=== PATIENT | female | born 1970 | race Caucasian/White ===

== ENCOUNTER 2018-10-11 12:21 | Emergency (ER) | payer OTHER ==
[~2018-10-11] VITALS: Ht 167.6 cm; Wt 61.2 kg
[~2018-10-11 12:21] MED LIST: AMBIEN 10 MG TA10 MG PO; HYDROCODON-ACE1 EAC5 PO; HYDROCODON-ACE1 EACH PO; IBUPROFEN 200200 M1 PO
[2018-10-11 13:00] LABS: ABSOLUTE BASOPHILS 0.1 thou/uL (0.0-0.2); ABSOLUTE EOSINOPHILS 0.1 thou/uL (0.0-0.7); ABSOLUTE LYMPHOCYTES 2.1 thou/uL (0.8-5.3); ABSOLUTE MONOCYTES 0.5 thou/uL (0.0-1.2); ABSOLUTE NEUTROPHILS 8.1 thou/uL (1.6-8.1); BASOPHILS 1.2 %; EOSINOPHILS 0.7 %; HEMATOCRIT 38.8 % (37.0-47.0); LYMPHOCYTES 19.1 %; MCH 29.4 pg (26.0-34.0); MCHC 33.6 g/dL (28.0-37.0); MCV 87.7 fL (80.0-100.0); MONOCYTES 4.2 %; MPV 8.1 fl. (7.2-11.1); NUCLEATED RBCS 0 /100WBC; PLATELET COUNT* 360 thou/uL (150-400); POLYS 74.8 %; RBC 4.42 mil/uL (4.20-5.00); RDW-CV 14.8 % (10.5-14.5); WBC 10.8 thou/uL (4.0-11.0)
[2018-10-11 13:09] LABS: ANION GAP 8 mmol/L (7-16); BUN 11 mg/dL (7-18); CALCIUM 8.6 mg/dL (8.5-10.1); CHLORIDE 101 mmol/L (98-107); CO2 28 mmol/L (21-32); CREATININE 0.7 mg/dL (0.6-1.3); GLUCOSE 104 mg/dL (70-99); POTASSIUM 3.6 mmol/L (3.5-5.1); SODIUM 137 mmol/L (136-145)
[2018-10-11 13:18] LABS: ALBUMIN 3.9 g/dL (3.4-5.0); ALKALINE PHOSPHATASE 95 U/L (46-116); SGOT 13 U/L (15-37); SGPT 17 U/L (30-65); TOTAL BILIRUBIN 0.2 mg/dL (<0.1-1.0); TOTAL PROTEIN 7.7 g/dL (6.4-8.2); TROPONIN-I LEVEL <0.06 ng/mL (<0.06)
[2018-10-11 13:29] LABS: URINE BILIRUBIN NEGATIVE (Negative); URINE BLOOD NEGATIVE (Negative); URINE CLARITY CLEAR; URINE COLOR YELLOW; URINE GLUCOSE-RANDOM NEGATIVE (Negative); URINE KETONES NEGATIVE (Negative); URINE LEUKOCYTES-REFLEX NEGATIVE (Negative); URINE NITRITE-REFLEX NEGATIVE (Negative); URINE PROTEIN NEGATIVE (Negative); URINE UROBILINOGEN 0.2 E.U./dl (0.2-1.0)
[2018-10-11] MEDS ORDERED: TESSALON PERLE100 MG PO (13:32)
[2018-10-11] MEDS ORDERED: ACETAMINOPHEN-1 EAC1 PO (13:32)
[2018-10-11] MEDS ORDERED: PREDNISONE 20 M20 MG PO (13:32)
[2018-10-11] MEDS ORDERED: PROAIR HFA8.5 GM INH (13:32)
[2018-10-11] MEDS ORDERED: ZPAK PO (13:32)
[2018-10-11 13:50] VITALS: BP 167/100
--- NOTE | 2018-10-12 17:00 | EKG ---
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[place] : 1970 Requested By: Ranjith Salamanca Order Number: [id number] MD: Rigoberto Nazario Measurements Intervals [place] Rate: 91 P: -7 MD: 124 QRS: 62 QRSD: 91 T: 65 QT: 370 QTc: 456 Interpretive Statements Sinus rhythm Consider left ventricular hypertrophy No previous ECG available for comparison Electronically Signed On 10-12-2018 16:59:53 CDT by Rigoberto Nazario [email or web address] <ELECTRONICALLY SIGNED> By: Rigoberto Nazario MD, [facility] 10/12/18 1659 1306 [id number] Rigoberto Nazario MD, FACC /EPI
== END 2018-10-11 13:50 | disposition home or self-care (01) ==
LOC: M.ERS 12:21
PROVIDERS: Physician Assistant
DX: J20.9 Acute bronchitis, unspecified (principal); R42 Dizziness and giddiness; F17.210 Nicotine dependence, cigarettes, uncomplicated; I10 Essential (primary) hypertension; Z79.899 Other long term (current) drug therapy; Z88.8 Allergy status to other drugs, medicaments and biological substances